=== PATIENT | female | born 1995 | race Caucasian/White ===

== ENCOUNTER 2020-07-14 17:16 | Emergency (ER) | payer MEDICAID ==
[~2020-07-14] VITALS: Ht 152.4 cm; Wt 50.0 kg
[2020-07-14] MEDS ORDERED: ACETAMINOPHEN 325MG TABLET PO STA (21:07)
[2020-07-14 21:39] LABS: BASOPHILS % 0.8 % (0.0-2.0); EOSINOPHILS % 2.5 % (0.0-5.0); HEMATOCRIT. 40.7 % (36.0-48.0); HEMOGLOBIN. 14.2 g/dL (12.0-16.0); MEAN CORPUSCULAR HEMOGLOBIN 30.4 pg (28.0-32.0); MEAN CORPUSCULAR VOLUME 86.9 fL (81.0-99.0); MEAN PLATELET VOLUME 8.7 fl (7.4-10.4); NEUTROPHILS % 57.7 % (40.0-76.0); PLATELET 232 x1000/uL (130-400); RED BLOOD CELL COUNT 4.68 mill/uL (4.2-5.4); RED CELL DISTRIBUTION WIDTH 12.6 % (11.6-14.6)
[2020-07-14 21:45] LABS: CHLORIDE 106 mEq/L (98-107)
[2020-07-14 21:50] LABS: CLARITY URINE CLOUDY (CLEAR); COLOR URINE YELLOW (YELLOW); KETONES URINE NEGATIVE (NEGATIVE); LEUKOCYTE ESTERASE URINE TRACE (NEGATIVE); NITRITE URINE NEGATIVE (NEGATIVE); OCCULT BLOOD URINE 3+ (NEGATIVE); PH URINE 6.5 (4.5-8.0); PROTEIN URINE TRACE (NEGATIVE)
[2020-07-14 21:55] LABS: B-HCG QUANTITATIVE 253 mIU/mL (<3)
[2020-07-14] MEDS ORDERED: PREN-135 MT (23:10)
[2020-07-14] MEDS ORDERED: NITR-87 MT (23:10)
[2020-07-14 23:30] VITALS: BP 102/65
== END 2020-07-15 00:45 | disposition home or self-care (01) ==
LOC: ER 17:16
DX: O20.0 Threatened abortion (principal); O23.31 Infections of other parts of urinary tract in pregnancy, first trimester; Z3A.01 Less than 8 weeks gestation of pregnancy
CPT/HCPCS: 36415; 76801; 80053; 81003; 81025; 84702; 85025; 86850; 86900; 99284